=== PATIENT | female | born 1975 | race Two or more races ===

== ENCOUNTER 2018-01-09 14:40 | Outpatient (CLI) | payer OTHER ==
--- NOTE | 2018-01-09 16:10 | MRI Report ---
EXAM: MRI BRAIN WITHOUT CONTRAST EXAM DATE: 01/09/2018 03:49 PM. CLINICAL HISTORY: Hemangioma. 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 Rec ent frontal headaches. COMPARISON: None. TECHNIQUE: Multiplanar, multisequence T1-weighted and fluid-sensitive MR sequences of the brain were performed. Sequences optimized for routine evaluation. Other: None. IV Contrast: None. FINDINGS: Brain Volume: Normal for age. Parenchyma/Dura: No mass, acute infarct or acute hemorrhage. A 9 x 8 x 11 mm focus of heterogeneous signal with peripheral magnetic susceptibility is seen in the left frontal chahal radiata and centrum semiovale. This has a "popcorn-like" appearance. Central incr eased T1 and T2 with peripheral hypointense signal in magnetic susceptibility is present. Peripheral to this a circumscribed rind of signal is seen. This demonstrates thin T1 hyperintense signal with a larger, 4 mm thick, rind of decreased FLAIR and T2 signal. No surrounding parenchymal gliosis. Ventricles/Cisterns: No hydrocephalus. No abnormal extra-axial fluid collection or hemorrhage. Orbits: Symmetric and unremarkable. Sella Turcica: The pituitary gland, cavernous sinuses, suprasellar cistern and optic chiasm are unrem arkable. IAC: Symmetric and unremarkable. Vasculature: Normal signal flow void is seen in the major arterial structures at the skull base. Sinuses: No acute appearing sinus disease. Mild polypoid mucosal thickening is seen inferiorly in the maxillary antra. Bones: No focal pathologic appearing marrow signal changes. Other: None. IMPRESSION: 1. No acute intracranial abnormality. 2. 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 No evidence of a ssociated acute hemorrhage or surrounding parenchymal gliosis. [facility] Referring Provider Line: [phone] SITE ID: [id number]
== END 2018-01-09 14:41 | disposition home or self-care (01) ==
LOC: DI 14:40
PROVIDERS: ATTEND Nurse Practitioner Family
DX: D18.02 Hemangioma of intracranial structures (principal); R51 Headache
CPT/HCPCS: 70551

== ENCOUNTER 2021-04-02 13:22 | Outpatient (CLI) | payer OTHER ==
--- NOTE | 2021-04-05 12:57 | Mammography Report ---
BILATERAL DIGITAL SCREENING MAMMOGRAM 3D/2D: 04/02/2021 CLINICAL: Routine screening. Comparison is made to exam dated: 07/18/2016 mammogram - [facility]. The tissue of both gucci asts is extremely dense, which lowers the sensitivity of mammography. No significant masses, calcifications, or other findings are seen in either breast. There has been no significant interval change. IMPRESSION: NEGATIVE There is no mammographic evidence of malignancy. A 1 year screening mammogram is recommended. This exam was interpreted at Station ID: [id number]. NOTE: For mammograms, a report in lay terms will be sent to the patient. Approximately 15% of breast malignancies will not be visualized mammographically. In the management of a palpable breast mass, a negative mammogram must not discourage biopsy of a clinically suspicious lesion. Electronically Signed By: Rob [email or web address]:04/02/2021 16:36:30 ACR BI-RADS Category 1: Negative 3341F PARENCHYMAL PATTERN: (VD) - The breast(s) demonstrate(s) extremely dense parenchyma, limiting the sen sitivity of mammography. BI-RADS CATEGORY: (1) - 1 RECOMMENDATION: (ANNUAL) - Recommend routine annual screening mammography. [id number] 1 year screening LATERALITY: (B)
== END 2021-04-02 13:23 | disposition home or self-care (01) ==
LOC: DI 13:22
DX: Z12.31 Encounter for screening mammogram for malignant neoplasm of breast (principal)